=== PATIENT | male | born 1940 | race American Indian/Alaskan Native ===

== ENCOUNTER 2016-12-09 06:40 | Emergency (ER) | payer MEDICARE ==
[2016-12-09 07:46] LABS: Basophils % (Auto) 0.4 % (0.0-1.8); Eosinophils % (Auto) 1.5 % (0.0-4.3); Hematocrit 40.1 % (35.5-45.6); Mean Corpuscular HGB Conc 32 % (32-34); Mean Corpuscular Hemoglobin 30 pg (28-32); Mean Corpuscular Volume 93 fl (84-94); Platelet Count 199 K/mm3 (140-440); Red Blood Count 4.34 M/mm3 (3.65-5.03); Red Cell Distribution Width 14.6 % (13.2-15.2); White Blood Count 5.7 K/mm3 (4.5-11.0)
[2016-12-09 07:56] LABS: Anion Gap 18 mmol/L; BUN/Creatinine Ratio 11.66; Blood Urea Nitrogen 14 mg/dL (9-20); Calcium 9.6 mg/dL (8.4-10.2); Carbon Dioxide 24 mmol/L (22-30); Glucose 118 mg/dL (75-100); Potassium 4.4 mmol/L (3.6-5.0); Sodium 141 mmol/L (137-145)
[2016-12-09 08:00] LABS: Bilirubin,Urine NEG (Negative); Blood,Urine LG (Negative); Ketones,Urine NEG (Negative); Leukocyte Esterase,Urine NEG (Negative); Mucus,Urine 2+ /HPF; Nitrite,Urine NEG (Negative); Protein,Urine <15 mg/dL mg/dL (Negative); Urobilinogen,Urine < 2.0 mg/dL (<2.0)
[2016-12-09] MEDS ORDERED: ZOFRAN IV ONE (09:40)
[2016-12-09] MEDS ORDERED: NACL 0.9% 500 ML 500 ML IV ONE (09:40)
[2016-12-09] MEDS ORDERED: PROTONIX IV ONE (09:40)
[2016-12-09] MEDS ORDERED: MORPHINE IV ONE ×2 (09:40→11:34)
[2016-12-09 09:52] LABS: Alanine Aminotransferase 16 units/L (7-56); Albumin 4.1 g/dL (3.9-5); Albumin/Globulin Ratio 1.3 %; Alkaline Phosphatase 95 units/L (35-129); Bilirubin,Total 0.5 mg/dL (0.1-1.2); Lipase 28 units/L (13-60); Total Protein 7.3 g/dL (6.3-8.2)
[2016-12-09 09:55] LABS: Bilirubin,Direct < 0.2 mg/dL (0-0.2)
--- NOTE | 2016-12-09 10:56 | Cat Scan Report ---
CT SCAN OF THE ABDOMEN AND PELVIS WITH CONTRAST: HISTORY: Right upper quadrant abdominal pain, epigastric pain. Prostate cancer. TECHNIQUE: Helical CT in 1.25mm intervals following IV contrast. Sagittal and coronal reconstructions. FINDINGS: Compared to 01/17/16. The liver is normal size and contour. There is a subtle 2.7 cm area of enhancement high in the right hepatic lobe just beneath the hemidiaphragm concerning for metastatic liver lesion. Please note this is not accessible for percutaneous biopsy due to its superior location in the liver. The biliary system is unremarkable. No calcified gallstones or biliary dilatation. The spleen and pancreas demonstrate a normal size and attenuation with no evidence of abnormal mass. The kidneys are normal in size and position with no evidence of hydronephrosis or mass. The adrenal glands are normal. There is no intestinal obstruction or ascites. Normal appendix. The abdominal aorta is normal. There is increased retroperitoneal adenopathy since the previous exam. Enlarged and suspicious lymph nodes are identified in the left periaortic chain, cavoatrial chain, and bilateral common iliac chains. The largest lymph node measures 2.4 cm and the left periaortic chain. There is no evidence for free fluid, free air or inflammatory change. The bladder and distal ureters are unremarkable. Radiotherapy beads are noted in the prostate bed. There are moderate degenerative changes in the lumbar spine and left hip. Right hip replacement appears stable. No definite blastic bony lesions. Heart size is normal. Small bilateral pleural effusions are identified. IMPRESSION: No acute inflammatory process. Mild progression of disease is demonstrated since 01/17/16. There appears to be a new 2.7 cm area of enhancement in the superior liver concerning for a metastatic lesion. Increased retroperitoneal adenopathy. Small bilateral pleural effusions.
--- NOTE | 2016-12-09 11:34 | Emergency Department Report ---
ED Abdominal Pain HPI - General Chief Complaint: Nausea/Vomiting/Diarrhea Stated Complaint: ABD PAIN/EMESIS Time Seen by Provider: 12/09/16 09:22 Source: patient Mode of arrival: Ambulatory Limitations: No Limitations - History of Present Illness Initial Comments: 76-year-old male with a past medical history of prostate cancer currently taking every 6 month shots, and hypertension presents to the hospital complains of abdominal pain and nausea since last night. Pain is in the right upper abdomen radiating to the back. He describes aching and intermittent. No aggravating or alleviating factors reported. Patient denies vomiting, diarrhea , melena, or hematochezia. Severity scale (0 -10): 8 - Related Data Home Medications Medication Instructions Recorded Confirmed Last Taken Bicalutamide [Bicalutamide] 50 mg PO DAILY 12/09/16 12/09/16 12/09/16 Lisinopril [Lisinopril] 5 mg PO DAILY 12/09/16 12/09/16 Unknown Metoprolol Succinate [Metoprolol 25 mg PO DAILY 12/09/16 12/09/16 Unknown Succinate] Simvastatin [Simvastatin] 1 tab PO QHS 12/09/16 12/09/16 12/08/16 Previous Rx's Medication Instructions Recorded Last Taken Type HYDROcodone/APAP 5-325 [[place] 1 each PO Q6HR PRN #20 tablet 12/09/16 Unknown Rx 5/325] Ondansetron [Zofran Odt] 4 mg PO Q8HR PRN #20 tab.rapdis 12/09/16 Unknown Rx Allergies Allergy/AdvReac Type Severity Reaction Status Date / Time No Known Allergies Allergy Unverified 10/22/13 08:02 ED Review of Systems ROS: Stated complaint: ABD PAIN/EMESIS Other details as noted in HPI Comment: All other systems reviewed and negative Other: Constitutional: No fevers chills Eyes: No eye pain visual changes ENT: No ear pain or throat pain Neck: Denies pain Respiratory: Denies cough wheezing shortness of breath Cardiovascular: Denies chest pain, palpitations, syncope GI:as per hpi : Denies dysuria Musculoskeletal: Denies back pain Skin: Denies rash, lesions, erythema Neurologic: Denies headache, numbness, weakness Psychiatric: Denies suicidal ideation, hallucinations ED Past Medical Hx - Past Medical History Previous Medical History?: Yes Hx Hypertension: Yes - Surgical History Past Surgical History?: Yes Additional Surgical History: hip - Social History Smoking Status: Former Smoker Substance Use Type: None - Medications Home Medications: Home Medications Medication Instructions Recorded Confirmed Last Taken Type Bicalutamide [Bicalutamide] 50 mg PO DAILY 12/09/16 12/09/16 12/09/16 History HYDROcodone/APAP 5-325 [[place] 1 each PO Q6HR PRN #20 tablet 12/09/16 Unknown Rx 5/325] Lisinopril [Lisinopril] 5 mg PO DAILY 12/09/16 12/09/16 Unknown History Metoprolol Succinate [Metoprolol 25 mg PO DAILY 12/09/16 12/09/16 Unknown History Succinate] Ondansetron [Zofran Odt] 4 mg PO Q8HR PRN #20 tab.rapdis 12/09/16 Unknown Rx Simvastatin [Simvastatin] 1 tab PO QHS 12/09/16 12/09/16 12/08/16 History ED Physical Exam - General Limitations: No Limitations - Other Other exam information: General: No limitations, patient is alert in no acute distress Head exam: Atraumatic, normocephalic Eyes exam: Normal appearance ENT: Moist mucous membrane, normal oropharynx Neck exam: Normal inspection, full range of motion Respiratory exam: Clear to auscultation bilateral, no wheezes, rales, crackles Cardiovascular: Normal rate and rhythm, normal heart sounds Abdomen: Soft, nondistended, and nontender, with normal bowel sounds, no rebound, or guarding Extremity: Full range of motion normal inspection no deformity Back: Normal Inspection, full range of motion, no tenderness Neurologic: Alert, oriented x3, cranial nerves intact, no motor or sensory deficit Psychiatric: normal affect, normal mood Skin: Warm, dry, intact ED Course Vital Signs 12/09/16 12/09/16 12/09/16 07:18 09:18 09:20 Temperature 98.3 F 97.7 F Pulse Rate 73 68 Respiratory 18 18 16 Rate Blood Pressure 98/70 Blood Pressure 121/78 [Left] O2 Sat by Pulse 97 95 Oximetry 12/09/16 12/09/16 12/09/16 09:22 09:30 09:45 Temperature Pulse Rate Respiratory Rate Blood Pressure 129/67 116/63 Blood Pressure [Left] O2 Sat by Pulse 97 100 100 Oximetry - Reevaluation(s) Reevaluation #1: 12/09/16 12:31 Pain initially improved with a small dose of morphine and and Zofran. Pain returned and improved again after additional morphine. Pain is intermittent and not reproducible on exam ED Medical Decision Making - Lab Data Result diagrams: 12/09/16 07:27 12/09/16 07:27 Lab Results 12/09/16 12/09/16 12/09/16 Range/Units 07:27 07:27 07:41 WBC 5.7 (4.5-11.0) K/mm3 RBC 4.34 (3.65-5.03) M/mm3 Hgb 13.0 (11.8-15.2) gm/dl Hct 40.1 (35.5-45.6) % MCV 93 (84-94) fl MCH 30 (28-32) pg MCHC 32 (32-34) % RDW 14.6 (13.2-15.2) % Plt Count 199 (140-440) K/mm3 Lymph % (Auto) 20.7 (13.4-35.0) % [place] % (Auto) 5.2 (0.0-7.3) % Eos % (Auto) 1.5 (0.0-4.3) % Baso % (Auto) 0.4 (0.0-1.8) % Lymph # 1.2 (1.2-5.4) K/mm3 [place] # 0.3 (0.0-0.8) K/mm3 Eos # 0.1 (0.0-0.4) K/mm3 Baso # 0.0 (0.0-0.1) K/mm3 Seg Neutrophils % 72.2 H (40.0-70.0) % Seg Neutrophils # 4.1 (1.8-7.7) K/mm3 Sodium 141 (137-145) mmol/L Potassium 4.4 (3.6-5.0) mmol/L Chloride 103.0 (98-107) mmol/L Carbon Dioxide 24 (22-30) mmol/L Anion Gap 18 mmol/L BUN 14 (9-20) mg/dL Creatinine 1.2 (0.8-1.5) mg/dL Estimated GFR > 60 ml/min BUN/Creatinine Ratio 11.66 % Glucose 118 H (75-100) mg/dL Calcium 9.6 (8.4-10.2) mg/dL Total Bilirubin (0.1-1.2) mg/dL Direct Bilirubin (0-0.2) mg/dL AST (5-40) units/L ALT (7-56) units/L Alkaline Phosphatase (35-129) units/L Total Protein (6.3-8.2) g/dL Albumin (3.9-5) g/dL Albumin/Globulin Ratio % Lipase (13-60) units/L Urine Color Yellow (Yellow) Urine Turbidity Slightly-cloudy (Clear) Urine pH 5.0 (5.0-7.0) Ur Specific [place] 1.025 (1.003-1.030) Urine Protein <15 mg/dl (Negative) mg/dL Urine Glucose (UA) Neg (Negative) mg/dL Urine Ketones Neg (Negative) mg/dL Urine Blood Lg (Negative) Urine Nitrite Neg (Negative) Urine Bilirubin Neg (Negative) Urine Urobilinogen < 2.0 (<2.0) mg/dL Ur Leukocyte Esterase Neg (Negative) Urine WBC (Auto) 3.0 (0.0-6.0) /HPF Urine RBC (Auto) 118.0 (0.0-6.0) /HPF U Epithel Cells (Auto) 1.0 (0-13.0) /HPF Calcium Oxalate Crystal 1+ Amorphous Crystals Few Urine Mucus 2+ /HPF / Range/Units Unknown WBC (4.5-11.0) K/mm3 RBC (3.65-5.03) M/mm3 Hgb (11.8-15.2) gm/dl Hct (35.5-45.6) % MCV (84-94) fl MCH (28-32) pg MCHC (32-34) % RDW (13.2-15.2) % Plt Count (140-440) K/mm3 Lymph % (Auto) (13.4-35.0) % [place] % (Auto) (0.0-7.3) % Eos % (Auto) (0.0-4.3) % Baso % (Auto) (0.0-1.8) % Lymph # (1.2-5.4) K/mm3 [place] # (0.0-0.8) K/mm3 Eos # (0.0-0.4) K/mm3 Baso # (0.0-0.1) K/mm3 Seg Neutrophils % (40.0-70.0) % Seg Neutrophils # (1.8-7.7) K/mm3 Sodium (137-145) mmol/L Potassium (3.6-5.0) mmol/L Chloride (98-107) mmol/L Carbon Dioxide (22-30) mmol/L Anion Gap mmol/L BUN (9-20) mg/dL Creatinine (0.8-1.5) mg/dL Estimated GFR ml/min BUN/Creatinine Ratio % Glucose (75-100) mg/dL Calcium (8.4-10.2) mg/dL Total Bilirubin 0.5 (0.1-1.2) mg/dL Direct Bilirubin < 0.2 (0-0.2) mg/dL AST 23 (5-40) units/L ALT 16 (7-56) units/L Alkaline Phosphatase 95 (35-129) units/L Total Protein 7.3 (6.3-8.2) g/dL Albumin 4.1 (3.9-5) g/dL Albumin/Globulin Ratio 1.3 % Lipase 28 (13-60) units/L Urine Color (Yellow) Urine Turbidity (Clear) Urine pH (5.0-7.0) Ur Specific [place] (1.003-1.030) Urine Protein (Negative) mg/dL Urine Glucose (UA) (Negative) mg/dL Urine Ketones (Negative) mg/dL Urine Blood (Negative) Urine Nitrite (Negative) Urine Bilirubin (Negative) Urine Urobilinogen (<2.0) mg/dL Ur Leukocyte Esterase (Negative) Urine WBC (Auto) (0.0-6.0) /HPF Urine RBC (Auto) (0.0-6.0) /HPF U Epithel Cells (Auto) (0-13.0) /HPF Calcium Oxalate Crystal Amorphous Crystals Urine Mucus /HPF - Radiology Data Radiology results: report reviewed CT abdomen and pelvis IV contrast: Mild progression of disease is temperature this is 01/17/2016. New 2.7 cm area of enhancement in the superior liver concerning for a metastatic lesion. Increased retroperitoneal adenopathy. Small bilateral pleural effusions - Medical Decision Making Pain improved while in the ED. No acute infectious or surgical cause of pain at this time. Patient will be discharged home with close follow-up - Differential Diagnosis biliary colic, renal colic, PUD, hepatitis, gastritis, abdominal pain NOS Critical Care Time: No Critical care attestation.: If time is entered above; I have spent that time in minutes in the direct care of this critically ill patient, excluding procedure time. ED Disposition Clinical Impression: Right sided abdominal pain, Hematuria, Hx of prostatic malignancy, Liver lesion Disposition: DISCHARGED TO HOME OR SELFCARE Is pt being admited?: No Does the pt Need Aspirin: No Condition: Stable Instructions: Acute Abdominal Pain (ED), Acute Hematuria (ED) Additional Instructions: Take the medications as prescribed and as needed. I have included a copy of the CAT scan report to your doctor for follow up. The CAT scan reveals a lesion on your liver that needs further investigation to determine whether this is a cancer lesion from your prostate. Your urine also has blood. No signs of infection at this time. Follow-up with the urologist for this as well. Hydrocodone/[place] is a narcotic and may cause drowsiness and constipation. Do not drive while taking this medication and take stool softeners as needed. Prescriptions: HYDROcodone/APAP 5-325 [[place] 5/325] 1 each PO Q6HR PRN #20 tablet PRN Reason: Pain Ondansetron [Zofran Odt] 4 mg PO Q8HR PRN #20 tab.rapdis PRN Reason: Pain Referrals: TIN CORADO MD [Primary Care Provider] - 3-5 Days your, pmd [Other] - 3-5 Days Time of Disposition: 12:41
[2016-12-09 13:21] VITALS: BP 120/75
== END 2016-12-09 12:44 | disposition home or self-care (01) ==
LOC: ED 06:40
DX: R10.11 Right upper quadrant pain (principal); R31.9 Hematuria, unspecified; K76.9 Liver disease, unspecified; I10 Essential (primary) hypertension; Z85.46 Personal history of malignant neoplasm of prostate; Z87.891 Personal history of nicotine dependence
CPT/HCPCS: 36415; 74177; 80048; 80074; 81001; 83690; 85025; 96361; 96374; 96375; 96376; 99284; C9113; J2270; J2405; J7040; Q9967

== ENCOUNTER 2017-01-01 07:19 | Outpatient (CLI) | payer MEDICARE ==
--- NOTE | 2017-01-01 11:38 | Nuclear Medicine Report ---
NUCLEAR MEDICINE WHOLE-BODY BONE SCAN: 01/01/17 CLINICAL: Prostate cancer. COMPARISON: 01/17/16 TECHNIQUE: 25.0millicuries technetium 99m MDP was injected intravenously and whole body scans were obtained 3 hours. FINDINGS: Stable photopenia of the right hip consistent with an orthopedic appliance in stable photopenia of the left proximal femur and hip with reactive changes in the left acetabulum. No suspicious uptake. Stable arthritic uptake in the shoulders, sternum, hands and feet. IMPRESSION: Negative with no suspicion of metastasis.
== END 2017-01-01 07:20 | disposition home or self-care (01) ==
LOC: NM 07:19
PROVIDERS: ATTEND Urology
DX: C61 Malignant neoplasm of prostate (principal)
CPT/HCPCS: 78306; A9503

== ENCOUNTER 2017-01-07 09:21 | Outpatient (CLI) | payer MEDICARE ==
[2017-01-07 09:59] LABS: Blood Urea Nitrogen 15 mg/dL (9-20)
--- NOTE | 2017-01-08 15:09 | Magnetic Resonance Report ---
MRI of the abdomen with and without contrast. History: Prostate cancer, right liver mass. Procedure: Multiplanar multisequence study was performed with and without contrast. Crosses made with the recent abdominal CT performed on December 09, 2016. Findings: Motion artifact compromises the technical quality of multiple sequences. The pre-contrast study demonstrates minimal vague signal alteration in the superior aspect of the right lobe of the liver corresponding to the abnormality seen on CT. After contrast, there is an area of equivocal enhancement of the parenchyma, but much smaller than the 2.7 cm in diameter lesion questioned on CT. There is no delayed enhancement or washout. The remainder of the liver is unremarkable. The spleen and pancreas appear normal. Retroperitoneal adenopathy is present as described on the abdominal CT study. The kidneys are normal in size and configuration with no evidence of mass or hydronephrosis. Impression: In the superior aspect of the right lobe of the liver, there is a very subtle area of signal alteration on both T1 and T2 sequences with minimal questionable enhancement. The abnormality is considerably smaller than the lesion questioned on CT. After review of the previous older CT examinations, this may have been present on prior studies in 2016 and possibly 2015. Therefore, I do not feel that this represents a metastatic lesion. This may represent a benign lesion or anatomic variation in vascularity and/or biliary tree. 2. Retroperitoneal adenopathy consistent with metastatic disease.
== END 2017-01-07 09:22 | disposition home or self-care (01) ==
LOC: MRI 09:21
PROVIDERS: ATTEND Internal Medicine Hematology & Oncology
DX: C61 Malignant neoplasm of prostate (principal); R16.0 Hepatomegaly, not elsewhere classified; R59.1 Generalized enlarged lymph nodes; E66.3 Overweight
CPT/HCPCS: 36415; 74183; 82565; 84520; A9577

== ENCOUNTER 2017-09-19 07:36 | Outpatient (CLI) | payer MEDICARE ==
[2017-09-19 08:35] LABS: Blood Urea Nitrogen 18 mg/dL (9-20)
[2017-09-19] MEDS ORDERED: NACL ONE (09:52)
--- NOTE | 2017-09-19 12:21 | Cat Scan Report ---
FINAL REPORT EXAM: CT ABDOMEN PELVIS W CON HISTORY: MALIGNANT NEOPLASM OF PROSTATE TECHNIQUE: CT abdomen and pelvis performed. Images extend from diaphragm to pubic symphysis. 100 cc Isovue 300 IV was administered. Oral contrast was administered. Coronal and sagittal reformatted images were obtained. PRIORS: None. FINDINGS: The visualized liver, spleen, pancreas, adrenal glands and kidneys demonstrate no significant abnormalities. There is abnormal lymphadenopathy in the retroperitoneum. Specifically abnormal lymph nodes are seen in the para aortic and aortocaval regions. There also bilateral enlarged iliac and mesenteric lymph nodes. There are aortoiliac atherosclerotic calcifications. There is no abdominal aortic aneurysm. There is no evidence of intestinal obstruction. The appendix is normal. There is no free intraperitoneal air. There is abnormal bladder wall thickening. There is also some perivesical stranding. Findings could reflect cystitis. Correlate clinically. There are radiation seeds in the prostate gland region. Artifact emanating from a right hip prosthesis obscures portions of the lower pelvis limiting evaluation. There are mixed lytic and sclerotic lesions in the sacrum and pelvis which are consistent with metastatic disease. There is a lytic metastasis in the L5 vertebral body. There are prominent degenerative changes involving the left hip. IMPRESSION: Bulky lymphadenopathy in the retroperitoneum, iliac region and mesentery. This likely reflects metastatic disease. Osseous metastatic disease involving L5, sacrum and pelvis.
--- NOTE | 2017-09-20 09:22 | Nuclear Medicine Report ---
Whole body bone scan: Compared to 01/17/16. Examination performed at 25 mCi technetium 99 MDP. History: Malignant neoplasm of prostate. 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 Normal activity in ribs, hips and lower extremities and upper extremity. Absence of activity at the right hip probably related to total hip. Increase in activity at the left hip joint probably due to arthritic changes. No significant interval change compared to previous study. Impression: No significant interval change compared to previous study.
== END 2017-09-19 07:37 | disposition home or self-care (01) ==
LOC: NM 07:36
PROVIDERS: ATTEND Internal Medicine Hematology & Oncology
DX: C79.51 Secondary malignant neoplasm of bone (principal); C79.89 Secondary malignant neoplasm of other specified sites; C61 Malignant neoplasm of prostate; I70.0 Atherosclerosis of aorta; R59.9 Enlarged lymph nodes, unspecified; I10 Essential (primary) hypertension; Z96.641 Presence of right artificial hip joint; Z79.899 Other long term (current) drug therapy; Z79.01 Long term (current) use of anticoagulants; Z87.891 Personal history of nicotine dependence
CPT/HCPCS: 36415; 74177; 78306; 82565; 84520; A9503; Q9967

== ENCOUNTER 2017-10-07 20:22 | Emergency (ER) | payer MEDICARE | END 2017-10-07 23:00 | disposition left against medical advice (07) | LOC: ED 20:22 | DX: R53.1 Weakness (principal); Z53.21 Procedure and treatment not carried out due to patient leaving prior to being seen by health care provider ==